=== PATIENT | male | born 1975 | race African-American/Black ===

== ENCOUNTER 2018-08-15 13:45 | Emergency (ER) | payer OTHER ==
--- NOTE | 2018-08-15 13:48 | PDOC ---
Rapid Medical Evaluation Time Seen by Provider: 08/15/18 13:46 Medical Evaluation: 08/15/18 13:46 HPI:L ankle pain after feeling a pop when playing basketball last night EXAM: no gross deficits ORDERS:L ANKLE INJURY
[2018-08-15 13:49] VITALS: BP 117/75; PULSE 88; TEMP 98.2; BMI 22.6
--- NOTE | 2018-08-15 14:52 | PDOC ---
History of Present Illness - General Chief Complaint: Injury Stated Complaint: LT LEG PAIN Time Seen by Provider: 08/15/18 13:46 History Source: Patient Exam Limitations: No Limitations - History of Present Illness Initial Comments: 08/15/18 14:44 laying basketball last night and sustained an inversion injury to his ankle. Occurred: reports: yesterday Past History - Past Medical History Allergies/Adverse Reactions: Allergies Allergy/AdvReac Type Severity Reaction Status Date / Time No Known Allergies Allergy Verified 08/15/18 13:49 Home Medications: Ambulatory Orders Ibuprofen 600 mg PO Q6H PRN #30 tablet 08/15/18 COPD: No - Suicide/Smoking/Psychosocial Hx Smoking History: Never smoked Review of Systems - Review of Systems Able to Perform ROS?: Yes Is the patient limited Bengali proficient: Yes Constitutional: Yes: See HPI. No: Symptoms Reported, Fever, Malaise HEENTM: No: Symptoms Reported Respiratory: No: Symptoms reported Musculoskeletal: Yes: Symptoms Reported, See HPI, Joint Pain, Joint Swelling Integumentary: Yes: See HPI. No: Symptoms Reported All Other Systems: Reviewed and Negative *Physical Exam - Vital Signs Last Vital Signs Temp Pulse Resp BP Pulse Ox 98.2 F 88 18 117/75 99 08/15/18 13:46 08/15/18 13:46 08/15/18 13:46 08/15/18 13:46 08/15/18 13:46 - Physical Exam General Appearance: Yes: Nourished, Appropriately Dressed, Apparent Distress, Mild Distress HEENT: positive: ABEBE, TMs Normal Neck: positive: Supple Respiratory/Chest: positive: Lungs Clear Musculoskeletal: positive: Normal Inspection, Decreased Range of Motion (no point tenderness to medial or lateral malleoulus , no 5th metatarsal, no Navicular pain, neg squeeze test/. ) Extremity: positive: Normal Inspection. negative: Normal Range of Motion Integumentary: positive: Normal Color, Dry, Warm Neurologic: positive: collet gluer II-XII NML intact, Fully Oriented, Alert, Normal Mood/ Affect, Normal Response, Motor Strength 5/5 Progress Note - Progress Note Progress Note: mild sprain, will treat with NSAIDs and perry wrap *DC/Admit/Observation/Transfer Diagnosis at time of Disposition: Mild ankle sprain Qualifiers: Encounter type: initial encounter Laterality: left Qualified Code(s): S93.402A - Sprain of unspecified ligament of left ankle, initial encounter - Discharge Dispostion Disposition: HOME Condition at time of disposition: Stable Decision to Admit order: No - Referrals Referrals: ON STAFF,NOT [Primary Care Provider] - - Patient Instructions Printed Discharge Instructions: DI for Ankle Sprain Additional Instructions: Rest, ice to area on and off for 15 minutes 4-6 times a day Avoid heavy lifting or exercise until pain and swelling is resolved or until further directed Keep area highly elevated to reduce swelling Use splints/Perry wrap as directed Followup with orthopedist in one to 2 days if not improving, if significantly improved may wait one week for followup with orthopedist May use ibuprofen every 6 hours as needed for pain - Post Discharge Activity Forms/Work/School Notes: Back to Work
== END 2018-08-15 15:07 | disposition home or self-care (01) ==
LOC: JERFT 13:45
DX: S93.402A Sprain of unspecified ligament of left ankle, initial encounter (principal); X58.XXXA Exposure to other specified factors, initial encounter; Y93.89 Activity, other specified; Y92.89 Other specified places as the place of occurrence of the external cause
CPT/HCPCS: 73610-TC-LT-FY; 99281-25

== ENCOUNTER 2018-09-25 15:54 | Emergency (ER) | payer OTHER ==
[2018-09-25 16:06] VITALS: BP 107/68; PULSE 86; TEMP 98.3; BMI 22.5
--- NOTE | 2018-09-25 16:10 | PDOC ---
Rapid Medical Evaluation Chief Complaint: Injury Time Seen by Provider: 09/25/18 16:03 Medical Evaluation: Allergies Allergy/AdvReac Type Severity Reaction Status Date / Time No Known Allergies Allergy Verified 08/15/18 13:49 09/25/18 16:04 I have performed a brief in-person evaluation of this patient. The patient presents with a chief complaint of: recurrent injury to left ankle= was seen here ~ 1 month ago and dx with ankle sprain. States was dancing at wedding and re-injured Pertinent physical exam findings: swelling and pain to lateral malleolus I have ordered the following: xraY left ankle The patient will proceed to the ED for further evaluation 09/25/18 16:05 09/25/18 16:11 Discharge Disposition - Diagnosis Mild ankle sprain - Referrals - Patient Instructions - Post Discharge Activity
--- NOTE | 2018-09-25 16:31 | PDOC ---
History of Present Illness - General Chief Complaint: Bone Injury Stated Complaint: SWOLLEN LT ANKLE Time Seen by Provider: 09/25/18 16:03 - History of Present Illness Initial Comments: 09/25/18 16:31 CHIEF COMPLAINT: left ankle pain HISTORY OF PRESENT ILLNESS: 43 yo M with no significant PMH presents to [facility] [employer] with left ankle pain s/p injury a month ago. Patient states he was playing basketball when he injured his ankle last month and was seen here and told he had no fracture or dislocations and to ice and bandage the ankle, which he did. He reports that he got this past weekend and was dancing a lot and now is feeling pain to his ankle again. No recent travel or sick contacts. PAST MEDICAL HISTORY: Denies past medical history FAMILY HISTORY: Denies SOCIAL HISTORY: Denies tobacco, alcohol, illicit drug use. SURGICAL HISTORY: Denies ALLERGIES: No known drug allergies REVIEW OF SYSTEMS General/Constitutional: Denies fever or chills. Denies weakness, weight change. HEENT: Denies change in vision. Denies ear pain or discharge. Denies sore throat. Cardiovascular: Denies chest pain or shortness of breath. Respiratory: Denies cough, wheezing, or hemoptysis. Gastrointestinal: Denies nausea, vomiting, diarrhea or constipation. Denies rectal bleeding. Genitourinary: Denies dysuria, frequency, or change in urination. Musculoskeletal: LEft ankle pain and mild swelling. Skin: Denies rash or easy bruising. Neurologic: Denies headache, vertigo, loss of consciousness, or loss of sensation. PHYSICAL EXAM General Appearance: Well-appearing, appropriately dressed. No apparent distress , no intoxication. HEENT: EOMI, PERRLA, normal ENT inspection, normal voice, TMs normal, pharynx normal. No conjunctival pallor. No photophobia, scleral icterus. Neck: Supple. Trachea midline. No tenderness, rigidity, carotid bruit, stridor , lymphadenopathy, or thyromegaly. Respiratory/Chest: Lungs CTAB. No shortness of breath, chest tenderness, respiratory distress, accessory muscle use. No crackles, rales, rhonchi, stridor , wheezing, dullness Cardiovascular: RRR. S1, S2. No JVD, murmur, bradycardia, tachycardia. Vascular Pulses: Dorsalis-Pedis (R): 2+, Dorsalis-Pedis (L): 2+ Gastrointestinal/Abdominal: Normal bowel sounds. Abdomen soft, non-distended. No tenderness or rebound tenderness. No organomegaly, pulsatile mass, guarding , hernia, hepatomegaly, splenomegaly. Lymphatic: No adenopathy, tenderness. Musculoskeletal/Extremities: Tenderness posterior to medial mallelous of left ankle. Full ROM, patient ambulatory. Normal inspection. FROM of all extremities , normal capillary refill. Pelvis Stable. No CVA tenderness. No tenderness to extremities, pedal edema, swelling, erythema or deformity. Integumentary: Appropriate color, dry, warm. No cyanosis, erythema, jaundice or rash Neurologic: real estate officer II-XII intact. Fully oriented, alert. Appropriate mood/affect. Motor strength 5/5. No appreciable EOM palsy, facial droop or sensory deficit. 09/25/18 16:33 Past History - Past Medical History Allergies/Adverse Reactions: Allergies Allergy/AdvReac Type Severity Reaction Status Date / Time No Known Allergies Allergy Verified 08/15/18 13:49 Home Medications: Ambulatory Orders Ibuprofen 600 mg PO Q6H PRN #30 tablet 08/15/18 Diclofenac Sodium 75 mg PO BID #20 tablet. 09/25/18 COPD: No - Immunization History Immunization Up to Date: Yes - Suicide/Smoking/Psychosocial Hx Smoking History: Never smoked Hx Alcohol Use: No Drug/Substance Use Hx: No *Physical Exam - Vital Signs Last Vital Signs Temp Pulse Resp BP Pulse Ox 98.3 F 86 18 107/68 100 09/25/18 16:04 09/25/18 16:04 09/25/18 16:04 09/25/18 16:04 09/25/18 16:04 Medical Decision Making - Medical Decision Making 09/25/18 16:35 43 yo M with no significant PMH presents to [facility] with left ankle pain s/p injury a month ago. -xray x-ray negative for fx or dislocation -air cast, crutches, NSAIDS refer to ortho Advised patient to take medication as prescribed and follow up with ortho for further management. Advised patient of signs and symptoms for return to ED. Patient verbalized understanding and agrees to plan. *DC/Admit/Observation/Transfer Diagnosis at time of Disposition: Mild ankle sprain Qualifiers: Encounter type: subsequent encounter Laterality: left Qualified Code(s): S93.402D - Sprain of unspecified ligament of left ankle, subsequent encounter - Discharge Dispostion Disposition: HOME Condition at time of disposition: Stable Decision to Admit order: No - Prescriptions Prescriptions: Diclofenac Sodium 75 mg PO BID #20 tablet.dr - Referrals Referrals: Jefe Nelson [Primary Care Provider] - Jefe Noel MD [Staff Physician] - hCad Rivero DO [Staff Physician] - - Patient Instructions Printed Discharge Instructions: How to Use Crutches, DI for Ankle Sprain - Post Discharge Activity
== END 2018-09-25 16:55 | disposition home or self-care (01) ==
LOC: JERFT 15:54
PROC: 2W3RX1Z Immobilization of Left Lower Leg using Splint (ICD-10-PCS; principal; 2018-09-25)
DX: S93.402A Sprain of unspecified ligament of left ankle, initial encounter (principal); X50.9XXA Other and unspecified overexertion or strenuous movements or postures, initial encounter; Y93.41 Activity, dancing; Y92.89 Other specified places as the place of occurrence of the external cause; Y99.8 Other external cause status
CPT/HCPCS: 73610-TC-LT-FY; 99282-25

== ENCOUNTER 2018-11-09 05:06 | Day surgery (SDC) | payer OTHER ==
[2018-11-07 12:26] VITALS: BMI 22.7
[2018-11-09] MEDS ORDERED: BUPIVACAINE HCL/PF 0.5% (5 MG/ML) 30 ML VIAL IJ ONE (07:29)
[2018-11-09] MEDS ORDERED: DEXAMETHASONE SOD PHOSPHATE/PF 10 MG/ML SDV ONE (07:29)
[2018-11-09] MEDS ORDERED: MIDAZOLAM HCL 2 MG/2 ML SINGLE DOSE VIAL ONE ×3 (07:29→08:12)
--- NOTE | 2018-11-09 08:05 | HP ---
Satellite [facility] - Chief Complaint Chief Complaint: left achilles tendon rupture - Past Medical History Allergies/Adverse Reactions: Allergies Allergy/AdvReac Type Severity Reaction Status Date / Time No Known Allergies Allergy Verified 11/09/18 06:34 - Current Medications Current Medications: Home Medications Medication Instructions Recorded Oxycodone HCl/Acetaminophen 1 - 2 tab PO Q6H #30 tab MDD 6 11/09/18 [Percocet 5-325 mg Tablet] Satellite Physical Exam - Physical Examination Vital Signs: Vital Signs Period Temp Pulse Resp BP Sys/Fong Pulse Ox Last 24 Hr 98.5 F 75 16 137/61 100 General Appearance: Well Nourished, Well Developed, Alert & Oriented x3 ENT: Clear Lung: Normal air movement Heart: Regular rate & rhythm Extremities: Other (left ankle- + palpable defect achilles, + dc, nvi) Neurological: Intact, Alert, Oriented Satellite Impression/Plan - Impression/Plan Impression: left achilles tendon rupture Operative Procedure: left achilles tendon repair Date to be Performed: 11/09/18
[2018-11-09] MEDS ORDERED: PROPOFOL 20 ML ONE ×4 (08:09→09:09)
[2018-11-09] MEDS ORDERED: SUCCINYLCHOLINE CHLORIDE 200 MG/10 ML SYRINGE ONE (08:10)
[2018-11-09] MEDS ORDERED: ceFAZolin SODIUM 1 GM VIAL ONE (08:16)
[2018-11-09] MEDS ORDERED: EPHEDRINE SULFATE/0.9% NACL/PF 50 MG/10 ML SYRINGE NR ONE (08:23)
[2018-11-09] MEDS ORDERED: KETAMINE HCL 200 MG/20 ML VIAL ONE (08:28)
[2018-11-09] MEDS ORDERED: SODIUM CHLORIDE 0.9% P/F 10 ML VIAL IJ ONE (09:10)
--- NOTE | 2018-11-09 09:29 | OP ---
Operative Note - Note: Operative Date: 11/09/18 ([facility]) Pre-Operative Diagnosis: left achilles tendon rupture Operation: left achilles tendon repair with VY graft Post-Operative Diagnosis: Same as Pre-op Surgeon: Jefe Noel Print Traffic Manager: Jonnie Orosco Anesthesiologist/ADMISSION NURSE COORDINATOR: Leonidas Robins Anesthesia: General, Local Estimated Blood Loss (mls): 25 Operative Report Dictated: Yes
--- NOTE | 2018-11-09 10:46 | OP ---
DATE OF OPERATION: 11/09/2018 PREOPERATIVE DIAGNOSIS: Left Achilles tendon rupture 8 weeks out. POSTOPERATIVE DIAGNOSIS: Left Achilles tendon rupture 8 weeks out. PROCEDURE: Left Achilles tendon repair with VY graft. SURGICAL ATTENDING: Jefe Noel MD CAGE OPERATOR: NOAH Burns ANESTHESIA: Regional plus sedation. CLOSURE: SutureTape for tendon and for graft, 2-0 Vicryl subcutaneous, and patrick for skin. ESTIMATED BLOOD LOSS: Negligible. COMPLICATIONS: None. CONDITION: To recovery room in stable condition. DESCRIPTION OF OPERATIVE PROCEDURE: Patient taken to the operating room on November 09, 2018. Regional anesthesia was administered by the anesthesiologist. Patient was placed in the prone position with all prominences well padded. The left lower extremity was prepped and draped in the usual sterile fashion. A 10- to 12-cm curvilinear incision was incised over the Achilles tendon defect from proximal medial to distal lateral. The incision was taken full thickness down to the level of the tendon. Both edges of the tendon were encased in premature scar tissue/healing tissue. There was a large gap at the tendon site. The scar tissue was debrided off of both ends of the tendon exposing healthy Achilles tendon beneath the . The proximal end was mobilized as best possibly could be to get length on the tendon. It was found that there was not enough length to get a good apposition of the 2 ends of tendon. We, therefore, 1 cm up from the edge of the proximal tendon we took a 10 blade and took a 10-mm width full-thickness flap of the Achilles tendon more proximal propagating up probably 4 cm up taking a full thickness and flapping that over down over the gap. No. 2 SutureTape was weaved up and down the sides of the tendon both on the proximal and distal flap. This was also used to close the gap in the tendon proximally where the graft was harvested from. A fasciotomy was performed on the bed of the Achilles tendon to bring blood supply into the region. The foot was placed in a equinus, and the 2 ends were sewn together just touching each other. The graft was then flapped over from the proximal end to the distal end and was weaved into both ends of the tendon, and excellent bridging of the gap was obtained. All the sutures were cut short. The incision was irrigated out with copious amounts of irrigation, 2-0 Vicryl was used to close the curvilinear incision followed by patrick for the skin. There was no undue tension on the skin. An equinus splint was then placed on the left lower extremity, and the patient was awakened from anesthesia and transferred to recovery room in stable condition with no complications. Estimated blood loss negligible. Prosper [id number]
[2018-11-09 11:04] VITALS: TEMP 97.5
[2018-11-09] MEDS ORDERED: oxyCODONE HCL 5 MG TABLET PO PRN (11:37)
[2018-11-09] MEDS ORDERED: ONDANSETRON 4 MG/2 ML VIAL IVPUSH PRN (11:37)
[2018-11-09] MEDS ORDERED: LACTATED RINGERS SOLUTION 1,000 ML IV SCH (11:45)
[2018-11-09 13:29] VITALS: BP 112/65; PULSE 70
== END 2018-11-09 12:35 | disposition home or self-care (01) ==
LOC: JASU-SURG 05:06
PROVIDERS: ATTEND Orthopaedic Surgery
PROC: 0LUP07Z Supplement Left Lower Leg Tendon with Autologous Tissue Substitute, Open Approach (ICD-10-PCS; principal; 2018-11-09 08:26)
DX: S86.012A Strain of left Achilles tendon, initial encounter (principal); X58.XXXA Exposure to other specified factors, initial encounter; Y93.9 Activity, unspecified; Y92.9 Unspecified place or not applicable
CPT/HCPCS: 94760